=== PATIENT | female | born 1925 | race African-American/Black ===

== ENCOUNTER → 2016-09-20 | Outpatient (CLI) | payer BC ==
[~2016-09-20] MED LIST: ACT35 PO; CHOL100026 PO; DHEA PO; DICL2.5D8 BOTHEYE; DOCU100C21 PO; FURO40TA5 PO; HYDR-519 PO; LACT10SO76 PO; MAGN400C PO; MORP15TA8 PO; MORP30TA66 PO; POTA20TA82 PO; ROSU10TA PO; TELM1TAB26 PO; TELM80TA3 PO; TRAV2.5D BOTHEYE
== END | disposition home or self-care (01) ==
LOC: RAD 10:56
PROVIDERS: ATTEND Internal Medicine Nephrology
DX: I51.7 Cardiomegaly (principal)
CPT/HCPCS: 71010

== ENCOUNTER 2016-10-13 16:13 | Inpatient (IN) | payer BC ==
[~2016-10-13] VITALS: Ht 149.9 cm; Wt 63.3 kg
[~2016-10-13 16:13] MED LIST changes: -ACT35 PO; -DHEA PO; -FURO40TA5 PO; -LACT10SO76 PO; -MAGN400C PO; -MORP30TA66 PO; -POTA20TA82 PO; -TELM80TA3 PO
[2016-10-13 17:57] LABS: BASOPHILS % 0.9 % (0.0-2.0); EOSINOPHILS % 5.4 % (0.0-5.0); HEMATOCRIT. 29.5 % (36.0-48.0); HEMOGLOBIN. 9.7 g/dL (12.0-16.0); LYMPHOCYTES % 38.3 % (20.0-50.0); MEAN CORPUSCULAR VOLUME 94.1 fL (81.0-99.0); MEAN PLATELET VOLUME 7.4 fl (7.4-10.4); MONOCYTES % 9.2 % (2.0-8.0); NEUTROPHILS % 46.2 % (40.0-76.0); PLATELET 238 x1000/uL (130-400); RED BLOOD CELL COUNT 3.14 mill/uL (4.2-5.4); RED CELL DISTRIBUTION WIDTH 16.1 % (11.6-14.6)
[2016-10-13 18:14] LABS: D-DIMER 3.05 mg/L FEU (<0.50); INR 1.1; PARTIAL THROMBOPLASTIN TIME 26.4 sec (24.0-34.0); PROTHROMBIN TIME 11.6 sec
[2016-10-13 18:15] LABS: CARBON DIOXIDE 26 mEq/L (21-32); CHLORIDE 106 mEq/L (98-107); TROPONIN I < 0.02 ng/mL (0.00-0.04)
[2016-10-13] MEDS ORDERED: SODIUM BICARBONATE 8.4% 1 MEQ/ML 50ML SYR IV ONE (18:30)
[2016-10-13] MEDS ORDERED: INSULIN REGULAR (HUMULIN R) 300UNITS/3ML IV ONE (18:30)
[2016-10-13] MEDS ORDERED: SODIUM POLYSTYRENE SULFONATE 15 G/60 ML BOT PO ONE (18:30)
[2016-10-13] MEDS ORDERED: CALCIUM CHLORIDE 1GM/10ML SYR IV ONE (18:30)
[2016-10-13] MEDS ORDERED: DEXTROSE 50% WATER 50ML SYRINGE IV ONE ×2 (18:30→22:30)
[2016-10-14] VITALS (23 sets, daily range): BP systolic 80–129; BP diastolic 29–91
[2016-10-14] MEDS ORDERED: ONDANSETRON HCL 4MG/2ML VIAL IV ONE ×2 (00:15)
[2016-10-14] MEDS ORDERED: LORA1TAB PO (01:05)
[2016-10-14] MEDS ORDERED: DHEA PO (01:05)
[2016-10-14] MEDS ORDERED: LORAZEPAM 0.5MG TABLET PO PRN (01:45)
[2016-10-14] MEDS ORDERED: HYDROCODONE/ACETAMINOPHEN 10/325MG TABLET PO PRN (01:45)
[2016-10-14] MEDS ORDERED: DOCUSATE SODIUM 100MG CAPSULE PO PRN (01:45)
[2016-10-14] MEDS ORDERED: ONDANSETRON HCL 4MG/2ML VIAL IV PRN (01:45)
[2016-10-14] MEDS ORDERED: SODIUM BICARBONATE 8.4% 1 MEQ/ML 50ML SYR IV NR (04:00)
[2016-10-14 07:45] LABS: BASOPHILS % 1.3 % (0.0-2.0); EOSINOPHILS % 0.5 % (0.0-5.0); HEMATOCRIT. 25.5 % (36.0-48.0); HEMOGLOBIN. 8.3 g/dL (12.0-16.0); LYMPHOCYTES % 18.5 % (20.0-50.0); MEAN CORPUSCULAR HEMOGLOBIN 30.5 pg (28.0-32.0); MEAN CORPUSCULAR VOLUME 94.1 fL (81.0-99.0); MEAN PLATELET VOLUME 7.6 fl (7.4-10.4); MONOCYTES % 6.7 % (2.0-8.0); PLATELET 205 x1000/uL (130-400); RED BLOOD CELL COUNT 2.71 mill/uL (4.2-5.4); RED CELL DISTRIBUTION WIDTH 15.9 % (11.6-14.6)
[2016-10-14 07:59] LABS: CLARITY URINE CLEAR (CLEAR); COLOR URINE YELLOW (YELLOW); GLUCOSE URINE NEGATIVE (NEGATIVE); KETONES URINE NEGATIVE (NEGATIVE); LEUKOCYTE ESTERASE URINE NEGATIVE (NEGATIVE); NITRITE URINE NEGATIVE (NEGATIVE); OCCULT BLOOD URINE NEGATIVE (NEGATIVE); PH URINE 7.5 (4.5-8.0); PROTEIN URINE 1+ (NEGATIVE); SPECIFIC GRAVITY URINE 1.011 (1.005-1.030); UROBILINOGEN URINE 0.2 E.U./dL (0.2-1.0)
[2016-10-14 08:23] LABS: CARBON DIOXIDE 27 mEq/L (21-32); CHLORIDE 110 mEq/L (98-107); CREATINE KINASE 39 IU/L (26-192); HDL CHOLESTEROL 52 mg/dL (40-59); LDL CHOLESTEROL 42 mg/dL (5-100); PHOSPHORUS 4.7 mg/dL (2.5-4.9); TOTAL IRON BINDING CAPACITY 164 ug/dL (250-450)
[2016-10-14] MEDS ORDERED: AMLODIPINE 10MG TABLET PO SCH (09:00)
[2016-10-14] MEDS ORDERED: LOSARTAN POTASSIUM 100 MG TABLET PO ONE (09:00)
[2016-10-14] MEDS ORDERED: SODIUM BICARBONATE 8.4% 1 MEQ/ML 50ML SYR IV SCH (09:30)
[2016-10-14] MEDS ORDERED: DEXT 5%/0.45% NACL 500 ML IV ONE ×2 (12:00→18:00)
[2016-10-14] MEDS ORDERED: SODIUM POLYSTYRENE SULFONATE 15 G/60 ML BOT PO SCH (12:00)
[2016-10-14] MEDS: ATORVASTATIN CALCIUM 20MG TABLET PO SCH (21:23)
[2016-10-14 21:45] LABS: BASOPHILS % 0.6 % (0.0-2.0); EOSINOPHILS % 3.1 % (0.0-5.0); HEMATOCRIT. 33.8 % (36.0-48.0); HEMOGLOBIN. 11.3 g/dL (12.0-16.0); LYMPHOCYTES % 21.7 % (20.0-50.0); MEAN CORPUSCULAR VOLUME 92.8 fL (81.0-99.0); MEAN PLATELET VOLUME 7.7 fl (7.4-10.4); MONOCYTES % 9.7 % (2.0-8.0); NEUTROPHILS % 64.9 % (40.0-76.0); PLATELET 173 x1000/uL (130-400); RED BLOOD CELL COUNT 3.64 mill/uL (4.2-5.4); RED CELL DISTRIBUTION WIDTH 15.9 % (11.6-14.6)
[2016-10-14] MEDS ORDERED: DEXT 5%/0.45% NACL 1000ML 1,000 ML IV NR (21:45)
[2016-10-14] MEDS ORDERED: DEXT 5%/0.45% NACL 1000ML 1,000 ML IV SCH (21:45)
[2016-10-14] MEDS: DIPHENHYDRAMINE 50MG/ML VIAL IV PRN (22:57)
[2016-10-14] MEDS ORDERED: MORPHINE SULFATE 15MG TABLET SR PO SCH (23:00)
[2016-10-15] VITALS (12 sets, daily range): BP systolic 97–136; BP diastolic 35–61
[2016-10-15] MEDS ORDERED: IPRATROPIUM/ALBUTEROL 0.5-3(2.5)MG/3ML NEB HHN PRN (10:00)
[2016-10-15] MEDS: ATORVASTATIN CALCIUM 20MG TABLET PO SCH (20:25)
[2016-10-15] MEDS: DIPHENHYDRAMINE 50MG/ML VIAL IV PRN (22:56)
[2016-10-16] VITALS (11 sets, daily range): BP systolic 91–158; BP diastolic 52–87
[2016-10-16 06:42] LABS: BASOPHILS % 1.2 % (0.0-2.0); EOSINOPHILS % 6.2 % (0.0-5.0); HEMATOCRIT. 34.4 % (36.0-48.0); HEMOGLOBIN. 11.3 g/dL (12.0-16.0); LYMPHOCYTES % 22.2 % (20.0-50.0); MEAN CORPUSCULAR HEMOGLOBIN 30.8 pg (28.0-32.0); MEAN CORPUSCULAR VOLUME 93.9 fL (81.0-99.0); MONOCYTES % 9.1 % (2.0-8.0); NEUTROPHILS % 61.3 % (40.0-76.0); PLATELET 181 x1000/uL (130-400); RED BLOOD CELL COUNT 3.66 mill/uL (4.2-5.4); RED CELL DISTRIBUTION WIDTH 15.5 % (11.6-14.6)
== END 2016-10-16 14:50 | disposition home or self-care (01) | DRG 683 ==
LOC: ER 18:11 → 3WST 18:41 → ENRESERV 20:24
PROVIDERS: ADMIT Specialist; ATTEND Specialist
PROC: 30233N1 Transfusion of Nonautologous Red Blood Cells into Peripheral Vein, Percutaneous Approach (ICD-10-PCS; principal; 2016-10-14)
DX: N17.9 Acute kidney failure, unspecified (principal); F11.20 Opioid dependence, uncomplicated; E87.5 Hyperkalemia; I12.9 Hypertensive chronic kidney disease with stage 1 through stage 4 chronic kidney disease, or unspecified chronic kidney disease; E78.00 Pure hypercholesterolemia, unspecified; E78.5 Hyperlipidemia, unspecified; G89.4 Chronic pain syndrome; H40.9 Unspecified glaucoma; M54.5 Low back pain; T50.995A Adverse effect of other drugs, medicaments and biological substances, initial encounter; K59.09 Other constipation; D63.1 Anemia in chronic kidney disease; M19.90 Unspecified osteoarthritis, unspecified site; N18.3 Chronic kidney disease, stage 3 (moderate); T40.2X5A Adverse effect of other opioids, initial encounter; Z99.2 Dependence on renal dialysis; Z88.1 Allergy status to other antibiotic agents; Z90.49 Acquired absence of other specified parts of digestive tract; Z90.710 Acquired absence of both cervix and uterus; Z79.899 Other long term (current) drug therapy; Y92.89 Other specified places as the place of occurrence of the external cause
CPT/HCPCS: 36415; 71010; 80048; 80053; 80061; 81001; 82248; 82306; 82550; 82962; 83036; 83540; 83550; 83690; 83735; 83880; 84100; 84132; 84439; 84443; 84481; 84484; 84550; 85025; 85379; 85610; 85651; 85730; 86850; 86900; 86920; 87086; 93005; 93970; 96374; 96375; 96376; 99285; A6261; J1200; J1815; J2405; J3490; J7040; P9016